=== PATIENT | female | born 1945 | race Caucasian/White ===

== ENCOUNTER → 2017-02-09 | Outpatient (CLI) | payer MEDICARE, OTHER ==
[~2017-02-09] MED LIST: ASPI1TAB PO; CALC600T60 PO; CYMB1CAP4 PO; LIPI20TA PO; LISI-538 PO; METF500T13 PO
--- NOTE | 2017-02-09 13:38 | REPMRS ---
Patient History The patient states she has not had a clinical breast exam in over a year. No known family history of cancer. Digital Woman Screen Mammo: February 09, 2017 - Exam #: [id number] Bilateral CC and MLO view(s) were taken. Technologist: Vianney Muñiz, Technologist Prior study comparison: January 28, 2016, digital woman screen mammo performed at [facility]. January 27, 2015, digital woman screen mammo performed at [facility]. FINDINGS: There are scattered fibroglandular densities. There has been no change in the appearance of the mammogram from the prior studies. There is a mild amount of residual fibroglandular tissue which is fairly symmetric. There is no interval development of dominant mass, architectural distortion, or clustered microcalcification suggestive of malignancy. ASSESSMENT: BI-RADS/ACR category 1 mammogram. Negative. Recommendation Routine screening mammogram in 1 year (for women over age 40). This mammogram was interpreted with the aid of an FDA-approved computer-aided dectection system. Electronically Signed By: Jose Ramon Odell MD 02/09/17 [id number]
--- NOTE | 2017-02-14 12:24 | DEXA ---
AP SPINE L1 - L4 1.404 1.7 3.4 LT FEMUR TOTAL 0.993 -0.1 1.4 RT FEMUR TOTAL 0.954 -0.4 1.1 TOTAL BODY TOTAL OTHER COMMENTS: Normal bone densitometry of the spine. There is low bone density of the hips. The density of the spine has increased 4.0% since the initial exam on 2000. The spine density has increased 2.6% since the most recent exam on 09/15/2008. The density of the left hip has decreased 5.0% since the initial exam on 2000. The density of the left hip has decreased 2.2% since the most recent exam on . The density of the right hip has decreased 1.4% since the initial exam on 2000. The density of the right hip has decreased 0.4% since the most recent exam on . FOLLOW-UP: Recommendation for the next bone density exam: 2 years. THAI
== END ==
LOC: M WHC 12:15
PROVIDERS: ATTEND Family Medicine
DX: Z12.31 Encounter for screening mammogram for malignant neoplasm of breast (principal); Z13.820 Encounter for screening for osteoporosis; M85.9 Disorder of bone density and structure, unspecified
CPT/HCPCS: 77080; G0202

== ENCOUNTER → 2018-12-05 | Outpatient (CLI) | payer MEDICARE, OTHER ==
[~2018-12-05] MED LIST changes: -ASPI1TAB PO; +ASPI81TA26 PO
--- NOTE | 2018-12-05 11:59 | REPMRS ---
Patient History The patient states she has not had a clinical breast exam in over a year. No known family history of cancer. No Hormone Replacement Therapy Digital Woman Screen Mammo: December 05, 2018 - Exam #: [id number] Bilateral CC and MLO view(s) were taken. Technologist: Vianney Muñiz, Technologist Prior study comparison: February 09, 2017, digital woman screen mammo performed at [facility]. January 28, 2016, digital woman screen mammo performed at [facility]. January 27, 2015, digital woman screen mammo performed at [facility]. FINDINGS: There are scattered fibroglandular densities. There has been no change in the appearance of the mammogram from the prior studies. There is a mild amount of scattered fibroglandular density which is fairly symmetric. There is no interval development of dominant mass, architectural distortion, or grouped microcalcification suggestive of malignancy. 3-D tomosynthesis shows no additional findings. Assessment: BI-RADS/ACR category 1 mammogram. Negative Mammogram. Recommendation Routine screening mammogram of both breasts in 1 year (for women over age 40). This patient's Lifetime Breast Cancer Risk is estimated at 3.5 %. This mammogram was interpreted with the aid of an FDA-approved computer-aided dectection system. Electronically Signed By: Amos Ross MD 12/05/18 [id number]
== END ==
LOC: M WHC 07:46
PROVIDERS: ATTEND Family Medicine
DX: Z12.31 Encounter for screening mammogram for malignant neoplasm of breast (principal)

== ENCOUNTER → 2019-12-12 | Outpatient (CLI) | payer MEDICARE, OTHER ==
--- NOTE | 2019-12-12 09:06 | REP ---
INDICATION: SCREENING MAMMO. No family history of breast cancer. COMPARISON: 12/05/2018 as well as other prior exams. TECHNIQUE: Digital screening (2D) mammography was performed bilaterally. Additionally, breast tomosynthesis (3D mammography) was performed bilaterally in the CC and MLO projections and compared to the prior exam(s). FINDINGS: There is mild scattered fibroglandular tissue bilaterally. In the right retroareolar region on the MLO view there is a smoothly marginated nodular density measuring 6 mm in maximum diameter. This is not seen on the corresponding CC view. Otherwise I see no evidence of mass or clustered microcalcifications bilaterally. IMPRESSION: ACR 0 incomplete. There is a 6 mm nodular density in the right retroareolar region only seen in the MLO projection. Recommend spot-compression views and ultrasound to further evaluate. This mammogram was read with the assistance of [employer], an FDA approved computer aided detection system for mammography. Negative x-ray reports should not delay surgical consultation if a dominant or clinically suspicious mass is present. Not all breast cancers can be identified by mammography. Therefore, we recommend that you continue to perform regular breast self-examination and physical examination and then promptly contact your physician of any concerns or changes. Adenosis and dense breasts may obscure an underlying neoplasm. Volpara breast density Leanne. Sophie Madrigal lifetime risk of breast cancer 3.3%. Patient letter M0. <Electronically signed by Jose Ramon Odell > 12/12/19 0902
== END ==
LOC: M WHC 07:23
PROVIDERS: ATTEND Family Medicine
DX: R92.8 Other abnormal and inconclusive findings on diagnostic imaging of breast (principal); Z12.31 Encounter for screening mammogram for malignant neoplasm of breast

== ENCOUNTER → 2019-12-17 | Outpatient (CLI) | payer MEDICARE, OTHER ==
--- NOTE | 2019-12-17 13:41 | REP ---
INDICATION: ADDL VIEWS RIGHT BREAST. COMPARISON: 12/12/2019 as well as other prior exams. TECHNIQUE: Spot compression views of the right breast performed to evaluate a 6 mm nodular density in the right retroareolar region, only seen in the MLO projection. FINDINGS: The nodular density does not persistent in any projection on today's spot compression views. The finding was artifactual. IMPRESSION: BIRADS/ACR 1-. No persistent nodule on today's spot compression views. This mammogram was interpreted with the aid of an FDA-approved computer-aided detection system. The patient letter being requested is M 1. RECOMMENDATION: Repeat screening mammography recommended 1 year (for women over 40). <Electronically signed by Jose Ramon Odell > 12/17/19 [id number]
== END ==
LOC: M WHC 13:03
PROVIDERS: ATTEND Family Medicine
DX: R92.8 Other abnormal and inconclusive findings on diagnostic imaging of breast (principal)
CPT/HCPCS: 77065; G0279

== ENCOUNTER → 2020-11-11 | Outpatient (CLI) | payer MEDICARE, OTHER ==
[~2020-11-11] MED LIST changes: -LISI-538 PO; +LISI20TA33 PO
== END ==
LOC: M LABSMTC 09:31
PROVIDERS: ATTEND Anesthesiology
DX: Z01.818 Encounter for other preprocedural examination (principal); Z11.52 Encounter for screening for COVID-19

== ENCOUNTER 2020-11-16 07:21 | Day surgery (SDC) | payer MEDICARE, OTHER ==
[~2020-11-16] VITALS: Ht 154.9 cm; Wt 82.6 kg
[~2020-11-16 07:21] MED LIST changes: +NS 1,000 ML IV ONE
[2020-11-16] MEDS ORDERED: propofoL 200 MG/20 ML VIAL As Ordered ONE ×2 (08:28→08:52)
[2020-11-16] MEDS ORDERED: LIDOCAINE 2% 100MG/5ML SDV (FOR ANES.) As Ordered ONE (08:28)
--- NOTE | 2020-11-16 08:59 | ROOR ---
Patient Name: Dipika Bryan Procedure Date: 11/16/2020 8:29 AM Date of : 1945 Age: 75 Room: [facility] Gender: Female Note Status: Finalized Procedure: Colonoscopy Indications: High risk colon cancer surveillance: Personal history of colonic polyps, Last colonoscopy: December 2014 Providers: Josh Rodriguez MD Referring MD: Elian Galvan MD Requesting Provider: Medicines: Monitored Anesthesia Care Complications: No immediate complications. Procedure: Pre-Anesthesia Assessment: - The heart rate, respiratory rate, oxygen saturations, blood pressure, adequacy of pulmonary ventilation, and response to care were monitored throughout the procedure. The Colonoscope was introduced through the anus and advanced to the cecum, identified by appendiceal orifice and ileocecal valve. The patient tolerated the procedure well. The quality of the bowel preparation was good. The colonoscopy was somewhat difficult due to multiple diverticula in the colon and a tortuous colon. The patient tolerated the procedure well. The quality of the bowel preparation was good. Findings: The perianal and digital rectal examinations were normal. A 5 mm polyp was found in the appendiceal orifice. The polyp was sessile. The polyp was removed with a cold snare. Resection and retrieval were complete. Multiple small and large-mouthed diverticula were found in the sigmoid colon. There was narrowing of the colon in association with the diverticular opening. There was evidence of diverticular spasm. Internal hemorrhoids were found during retroflexion. The hemorrhoids were medium-sized. Impression: - One 5 mm polyp at the appendiceal orifice, removed with a cold snare. Resected and retrieved. - Moderate diverticulosis in the sigmoid colon. There was narrowing of the colon in association with the diverticular opening. There was evidence of diverticular spasm. - Internal hemorrhoids. Recommendation: - Repeat colonoscopy in 5 years for surveillance. - (Consider repeat colonoscopy in 5 yrs, dep on health status at that time) Procedure Code(s): --- Professional --- 25370, Colonoscopy, flexible; with removal of tumor(s), polyp(s), or other lesion(s) by snare technique Diagnosis Code(s): --- Professional --- K57.30, Diverticulosis of large intestine without perforation or abscess without bleeding K64.8, Other hemorrhoids K63.5, Polyp of colon Z86.010, Personal history of colonic polyps CPT copyright 2019 [employer]. All rights reserved. The codes documented in this report are preliminary and upon benchroom shop optician review may be revised to meet current compliance requirements. Josh Rodriguez MD Josh Rodriguez MD 11/16/2020 8:59:04 AM Electronically signed by Josh Rodriguez MD Number of Addenda: 0 Note Initiated On: 11/16/2020 8:29 AM Estimated Blood Loss: Estimated blood loss: none.
[2020-11-16 09:23] VITALS: BP 198/84
== END 2020-11-16 09:45 | disposition home or self-care (01) ==
LOC: M OPP 07:21
PROVIDERS: ATTEND Internal Medicine Gastroenterology
DX: Z12.11 Encounter for screening for malignant neoplasm of colon (principal); Z86.010 Personal history of colon polyps; K63.5 Polyp of colon; K57.30 Diverticulosis of large intestine without perforation or abscess without bleeding; K64.8 Other hemorrhoids; Z79.82 Long term (current) use of aspirin; Z79.84 Long term (current) use of oral hypoglycemic drugs; Z79.899 Other long term (current) drug therapy

== ENCOUNTER → 2021-01-04 | Outpatient (CLI) | payer MEDICARE, OTHER ==
[~2021-01-04] MED LIST changes: -NS 1,000 ML IV ONE
--- NOTE | 2021-01-04 10:12 | REPMRS ---
Patient History The patient states she has not had a clinical breast exam in over a year. No known family history of cancer. No Hormone Replacement Therapy Moderna vaccines 04/04/20 left arm. 05/02/20 left arm. Patient states no breast complaints today. Patient has signed MRS History Sheet. Digital Woman Screen Mammo: January 04, 2021 - Exam #: [id number] Bilateral CC and MLO view(s) were taken. Technologist: RT Rancho Prior study comparison: December 17, 2019, right breast diagnostic unilateral mammo performed at [facility]. December 12, 2019, bilateral digital woman screen mammo performed at [facility]. FINDINGS: There are scattered fibroglandular densities. Screening. Digital screening (2D) mammography was performed bilaterally in the CC and MLO projections. Additionally, breast tomosynthesis (3D mammography) was performed bilaterally in the CC and MLO projections. Todays exam was compared to the prior exam/exams. By history, the patient has no complaints of a palpable breast abnormality or other significant breast complaints. The Volpara volumetric breast density category is B, there are scattered areas of fibroglandular densities. The breasts are unchanged in size and shape. There are no eber-soft tissue densities or spiculated masses. There is no internal architectural distortion. There are no suspicious eber-calcific clusters. Skin thickening or nipple retraction is not present. IMPRESSION: BI-RADS Category 2- Benign Findings. There is no evidence of malignant alteration of the breasts. Followup examination recommended in one year. The lifetime Tyrer-Cuzick score is 3.1% This mammogram was read with the assistance of [employer],an FDA approved computer aided detection system for mammography. Negative x-ray reports should not delay surgical consultation if a dominant or clinically suspicious mass is present. Not all breast cancers can be identified by mammography. Therefore, we recommend that you continue to perform regular breast self-examination and physical examination and then promptly contact your physician of any concerns or changes. Adenosis and dense breasts may obscure an underlying neoplasm. No significant changes when compared with prior studies. Assessment: BI-RADS/ACR category 2 mammogram. Benign Findings. Recommendation Routine screening mammogram of both breasts in 1 year. Electronically Signed By: Odin Hernandez MD 01/04/21 7549
== END ==
LOC: M WHC 07:47
PROVIDERS: ATTEND Family Medicine
DX: Z12.31 Encounter for screening mammogram for malignant neoplasm of breast (principal)

== ENCOUNTER → 2022-01-06 | Outpatient (CLI) | payer MEDICARE, OTHER | LOC: M WHC 07:03 | PROVIDERS: ATTEND Family Medicine | DX: Z12.31 Encounter for screening mammogram for malignant neoplasm of breast (principal) ==

== ENCOUNTER → 2023-01-08 | Outpatient (CLI) | payer MEDICARE, OTHER | LOC: M WHC 11:14 | PROVIDERS: ATTEND Family Medicine | DX: Z12.31 Encounter for screening mammogram for malignant neoplasm of breast (principal) ==

== ENCOUNTER → 2024-01-10 | Outpatient (CLI) | payer MEDICARE, OTHER | LOC: M WHC 07:00 | PROVIDERS: ATTEND Family Medicine | DX: Z12.31 Encounter for screening mammogram for malignant neoplasm of breast (principal) ==

== ENCOUNTER → 2025-02-16 | Outpatient (CLI) | payer MEDICARE, OTHER | LOC: M WHC 07:55 | PROVIDERS: ATTEND Family Medicine | DX: Z12.31 Encounter for screening mammogram for malignant neoplasm of breast (principal); Z13.820 Encounter for screening for osteoporosis; M85.89 Other specified disorders of bone density and structure, multiple sites; R92.323 Mammographic fibroglandular density, bilateral breasts ==